=== PATIENT | male | born 1955 | race Caucasian/White ===

== ENCOUNTER 2017-07-01 06:25 | Inpatient (IN) | payer BC ==
[2017-07-01] VITALS (17 sets, daily range): BP systolic 89–110; BP diastolic 55–67; PULSE 48–62; RESP 14–19; Ht 170.2 cm; Wt 87.3 kg
[~2017-07-01] VITALS: Ht 170.2 cm; Wt 87.3 kg
[~2017-07-01 06:25] MED LIST: ASPI81TA3 PO; ATOR80TA75 PO; FINA5TAB PO; LISI-313 PO; METO-448 PO; PANT40TA4 PO; TICA90TA PO
[2017-07-01] MEDS ORDERED: LISI10TA2 PO (06:32)
[2017-07-01] MEDS ORDERED: METO-335 PO (06:32)
[2017-07-01] MEDS ORDERED: TAMS0.4C2 PO (06:32)
[2017-07-01] MEDS ORDERED: RANO500T2 PO (06:32)
[2017-07-01] MEDS ORDERED: LANS15CA5 PO (06:32)
[2017-07-01 07:15] LABS: BASOPHIL # 0.1 10^3/ul (0.0-0.1); BASOPHILS % 0.8 % (0.0-2.0); EOSINOPHILS # 0.1 10^3/ul (0.0-0.5); EOSINOPHILS % 1.7 % (0.0-7.0); HEMATOCRIT 39.7 % (42.0-52.0); HEMOGLOBIN 13.5 g/dl (14.0-18.0); LYMPHOCYTES # 1.9 10^3/ul (0.8-2.9); MEAN CORPUSCULAR HEMOGLOBIN 31.3 pg (29.0-33.0); MEAN CORPUSCULAR VOLUME 91.9 fl (82.0-101.0); MEAN PLATELET VOLUME 10.1 fl (7.4-10.4); MONOCYTE # 0.5 10^3/ul (0.3-0.9); MONOCYTES % 7.5 % (0.0-11.0); NEUTROPHIL # 4.5 10^3/ul (1.6-7.5); NEUTROPHILS % 62.7 % (39.0-77.0); PLATELET COUNT 200 10^3/UL (140-415); RED BLOOD COUNT 4.32 10^6/ul (4.70-6.10); RED CELL DISTRIBUTION WIDTH 12.8 % (11.5-14.5); WHITE BLOOD COUNT 7.1 10^3/ul (4.8-10.8)
[2017-07-01 07:45] LABS: INR 0.93; PROTIME 12.5 Sec (12.2-14.2)
[2017-07-01 07:52] LABS: CALCIUM 9.6 mg/dl (8.4-10.2); CREATININE 0.87 mg/dl (0.61-1.24); POTASSIUM 3.8 mmol/L (3.5-5.1)
[2017-07-01] MEDS ORDERED: MIDAZOLAM 1 MG/ML 2 ML INJ ONE (08:13)
[2017-07-01] MEDS ORDERED: FENTAnyl 50 MCG/ML VIAL ONE (08:13)
[2017-07-01] MEDS ORDERED: PROPOFOL 20 ML ONE (08:15)
[2017-07-01] MEDS ORDERED: LIDOCAINE 1%/EPI 30 ML INJ ONE ×2 (08:43→08:45)
[2017-07-01 08:45] LABS: PARTIAL THROMBOPLASTIN TIME 23.3 Sec (25.0-35.0)
[2017-07-01] MEDS ORDERED: PHENYLephrine (100 MCG/ML) 5ML SYG ONE (09:18)
[2017-07-01] MEDS ORDERED: PHENYLephrine 10 MG INJ ONE (09:18)
[2017-07-01] MEDS ORDERED: SOD CHLORIDE 0.9% 1,000 ML IV SCH (09:50)
--- NOTE | 2017-07-01 09:50 | SIPON ---
Date/Time of Note Date/Time of Note DATE: 07/01/17 TIME: 09:48 Operative Report Preoperative Diagnosis Isch MY, EF < 30%, CHF Class II - 6 mnths med rx, ICD based on MADIT 2 Postoperative Diagnosis Same Operation/Procedure Performed ICD VVI MRI 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
[2017-07-01] MEDS ORDERED: ACETAMINOPHEN 325 MG TAB PO PRN ×2 (10:00→11:30)
--- NOTE | 2017-07-01 10:05 | SP ---
DATE OF PROCEDURE: 07/01/2017 REFERRING PHYSICIAN: Dr. Christiansen. REASON FOR EVALUATION: Ischemic cardiomyopathy. PROCEDURE PERFORMED: Single chamber ICD implantation with Fluoroscopy with interpretation. INDICATION FOR PROCEDURE: Ischemic cardiomyopathy greater than 6 months' duration, good medical the rapy with EF less than 30% class II heart failure symptoms. POST PROCEDURE DIAGNOSIS: Single chamber ICD implantation with Fluoroscopy with interpretation. DEVICE INFORMATION: Implanted ICD is [facility] [employer] Fortify Assura TVR 1357-40Q, serial #[id number]. RV lead is [facility] [employer] Durata 7120Q 58 cm lead, serial #[id number]. Acute threshold R-wave wa s 6.8 millivolts, lead impedance 460 ohms, threshold 0.75 volts at 0.5 msec. High voltage impedance 37 ohms. Initial setting is VVI 45. Initial VT zone is 181, VF is 200. There is ATP x2 with initial shock at 30 and then max to follow. DESCRIPTION OF PROCEDURE: The informed consent was obtained. 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 Anesthesiologist supervised airway and sedation. The patient had left-side of the chest prepped and draped in usual sterile fashion, 1% lidocaine wa s used for local analgesia. Now using #10 scalpel, a 3 cm incision was made after lidocaine was inj ected and the pocket was created. Using cautery and blunt dissection, the pocket was created. Mc spaulding modified Salinger approach after upper extremity venogram, the left subclavian vein was cannulated and J-wire passed easily. From there using an 8-Tongan sheath as a base, the RV lead was placed in RV apex and actively fixed into RV apex. Some slack was left inside the lead and the sheath was pu lled away. The lead was sutured to the muscle layer with 0 Ethibond sutures. The lead was attached to the generator. The pocket was irrigated with antibiotic solution and entire system was placed i nside the pocket. The skin was closed in multiple layers of 2-0 Vicryl sutures. Steri-Strips were placed on top of the incision. The patient appears to have tolerated the procedure well. He is goi ng to have chest x-ray, continuous antibiotics and monitoring. I will see him in the office. Dictated By: ANNELIESE WATKINS MD ML/NTS Conf#: [id number] [facility]#: [id number]
--- NOTE | 2017-07-01 10:39 | RADRPT ---
PROCEDURE: XR Chest 1 View. CLINICAL INDICATION: Postop device implant. TECHNIQUE: AP view of the chest was obtained. COMPARISON: Report December 21, 2013 FINDINGS: The cardiomediastinal silhouette is within normal limits. Left-sided AICD has its lead over the hear t. The lungs are hypoinflated. Scattered atelectasis is noted in the bilateral lower lungs. No conso lidations are identified. No pneumothorax is seen. Osseous structures are intact. IMPRESSION: Left-sided AICD with its lead over the heart. No visualized pneumothorax. Hypoinflated lungs with scattered atelectasis in the bilateral lower lungs. RPTAT: AA .Salazar Amaya MD, Date Time Electronically viewed and signed by .Salazar Amaya MD, on 07/01/2017 10:38 .P/
[2017-07-01] MEDS: morphine 2 MG INJ IV PRN ×3 (11:05→20:30)
[2017-07-01] MEDS ORDERED: ALBUTEROL/IPRATROPIUM (NEB) 3 ML AMP HHN PRN (11:30)
[2017-07-01] MEDS ORDERED: ZOLPIDEM 5 MG TAB PO PRN (11:30)
[2017-07-01] MEDS ORDERED: DOCUSATE SODIUM 100 MG CAP PO PRN (11:30)
[2017-07-01] MEDS ORDERED: morphine 2 MG INJ IV PRN (11:30)
[2017-07-01] MEDS ORDERED: ONDANSETRON 4 MG INJ IV PRN (11:30)
[2017-07-01] MEDS ORDERED: NACL 0.9% 3 ML SYG IV SCH (11:30)
[2017-07-01] MEDS: TAMSULOSIN (SR) 0.4 MG CAP PO SCH (11:36)
[2017-07-01] MEDS: RANOLAZINE (SR) 500 MG TAB PO SCH ×2 (11:36→20:36)
[2017-07-01] MEDS: CEFAZOLIN 1 GM/50 ML (PMX) 50 ML IVPB SCH ×2 (13:57→22:06)
[2017-07-01] MEDS: HYDROCODONE/APAP (5/325) TAB PO PRN (14:24)
--- NOTE | 2017-07-01 14:58 | HP ---
Date/Time of Note Date/Time of Note DATE: 07/01/17 TIME: 14:52 Assessment/Plan VTE Prophylaxis VTE Prophylaxis Intervention: ambulation, SCD's Assessment/Plan Chief Complaint/Hosp Course 62-year-old male, with history of ischemic cardiomyopathy who was brought electively for AICD placement. 1. Ischemic cardiomyopathy, last known ejection fraction < 30% -Status post AICD placed. Continue Ancef postoperative course. Follow-up with cardiology recommendation. -Continue medical optimization 2. Coronary artery disease with history of PCI and stent placed to RCA/LAD. -Continue DAPT, statin, antihypertensives 3. Essential hypertension. -Continue BB/ACEI 4. Hypercholesteremia. -Continue statin. 5. BPH -Continue Flomax/Proscar Plan: Monitor patient in telemetry overnight. Follow-up with cardiology recommendations. Rest of the management depend on clinical course. Approximately 60 minutes was spent on this history and physical. Patient was seen in collaboration with . Problems: HPI/ROS Admit Date/Time Admit Date/Time Hx of Present Illness This is a 61-year-old male with a past medical history of previous NM, coronary artery disease with multiple PCI's, latest stent to RCA, proximal LAD done on , essential hypertension, dyslipidemia, ischemic cardiomyopathy, who was brought to hospital for elective AICD placement with Dr. Alonzo. Postprocedure, a decision has made to admit him for observation. Patient denied chest pain, palpitation, shortness of breath, nausea, vomiting, abdominal pain, focal deficit, or other constitutional symptoms. Left chest wall AICD placement area intact. CBC BMP within acceptable range. Vital signs with heart rate 54, respiratory rate 16, blood pressure 93/62 and oxygen saturation 96% on room air. ROS A 12 point review of system was assessed and is negative other than what is mentioned in HPI. PMH/Family/Social Past Medical History See HPI Past Surgical History See HPI Social History Former smoker. Patient denied any current use of alcohol, smoking or illicit drug use. Smoking Status: Former smoker Exam/Review of Systems Vital Signs Vitals Vital Signs Date Time Temp Pulse Resp B/P Pulse Ox O2 Delivery O2 Flow Rate FiO2 07/01/17 14:21 54 16 96 07/01/17 12:21 93/62 Room Air 07/01/17 10:01 97.0 Exam Exam General: Well developed,adequately built, not in any acute distress . HEENT: Normocephalic, Atraumatic, No laceration or hematoma; Eyes: PEERL, Conjunctiva clear, Anicteric sclera Neck: Supple without any lymphadenopathy, nontender, no JVD, no carotid bruits, trachea midline, no thyromegaly Cardiac: Left chest wall AICD. S1, S2 auscultated, regular rhythm and rate, no mumurs or gallop Pulmonary: Normal respiratory effort. Chest clear to auscultation bilaterally, no adventitious breath sounds GI: Abdomen normal to inspection. Soft, non tender, non- distended, no masses, no rebound tenderness or guarding. Bowel sounds active on all four quadrants Genitourinary: Deferred Extremities: No cyanosis, clubbing, or edema. Pulses [2+] bilaterally. Full ROM on all four extremities. No focal weakness appreciated. Neurologic: Alert to person, place, time, and situation. Affect appropriate, intact sensation. Skin: Clean,dry, and intact. No ecchymosis, no rashes, or lesions Labs Result Diagram: 07/01/17 0700 07/01/17 0700 Medications Medications Current Medications Acetaminophen (Tylenol Tab) 650 mg Q4H PRN PO NON-CARDIAC PAIN LEVEL (1-3) Last administered on 07/01/17 10:23; Admin Dose 650 MG; Start 07/01/17 at 10: 00 Morphine Sulfate 2 mg 2 mg Q2H PRN IV FOR NON CARDIAC PAIN (4-10) Last administered on 07/01/17 11:05; Admin Dose 2 MG; Start 07/01/17 at 10:00 Sodium Chloride 1,000 ml @ 75 mls/hr [id number] IV Last administered on 10:24; Admin Dose 75 MLS/HR; Start 07/01/17 at 09:50; Stop 07/01/17 at 14 :49 Cefazolin Sodium (Ancef 1 Gm/50 ml (Pmx)) 50 ml @ 100 mls/hr Q8 IVPB Last administered on 07/01/17 13:57; Admin Dose 100 MLS/HR; Start 07/01/17 at 14: 00 Miscellaneous Information (* Miscellaneous Pharmacy Order) DC all Lovenox, Hepari... ONCE XX ; Start 07/01/17 at 10:00 Aspirin (Aspirin) 81 mg DAILY PO ; Start 07/02/17 at 09:00 Atorvastatin Calcium (Lipitor) 80 mg HS PO ; Start 07/01/17 at 21:00 Finasteride (Proscar) 5 mg DAILY PO ; Start 07/02/17 at 09:00 Lisinopril (Zestril) 10 mg DAILY PO ; Start 07/02/17 at 09:00 Metoprolol Succinate (Toprol Xl) 25 mg DAILY PO ; Start 07/02/17 at 09:00 Ranolazine (Ranexa) 500 mg Q12 PO Last administered on 07/01/17 11:36; Admin Dose 500 MG; Start 07/01/17 at 11:00 Tamsulosin HCl (Flomax) 0.4 mg DAILY PO Last administered on 07/01/17 11:36; Admin Dose 0.4 MG; Start 07/01/17 at 11:00 Ticagrelor (Brilinta) 90 mg BID PO ; Start 07/01/17 at 21:00 Ondansetron HCl (Zofran Inj) 4 mg Q6H PRN IV NAUSEA AND/OR VOMITING; Start at 11:30 Acetaminophen (Tylenol Tab) 650 mg Q6H PRN PO PAIN LEVEL 1-3 OR FEVER; Start 07/01/17 at 11:30 Acetaminophen/ Hydrocodone Bitart ([place] (5/325)) 1 tab Q6H PRN PO MODERATE PAIN LEVEL 4-6 Last administered on 07/01/17 14:24; Admin Dose 1 TAB; Start 07/01/17 at 11:30 Morphine Sulfate (morphine) 1 mg Q4H PRN IV SEVERE PAIN LEVEL 7-10 Last administered on 07/01/17 13:50; Admin Dose 1 MG; Start 07/01/17 at 11:30 Docusate Sodium (Colace) 100 mg Q12H PRN PO CONSTIPATION; Start 07/01/17 at 11 :30 Zolpidem Tartrate (Ambien) 5 mg QHS PRN PO SLEEP; Start 07/01/17 at 11:30 Famotidine (Pepcid Iv) 20 mg Q12 IV ; Start 07/01/17 at 21:00 PAUL DURAN NP Jul 01, 2017 14:58
[2017-07-01] MEDS: TICAGRELOR 90 MG TABLET PO SCH (20:36)
[2017-07-01] MEDS: FAMOTIDINE 20 MG INJ IV SCH (20:36)
[2017-07-01] MEDS ORDERED: ATORVASTATIN 80 MG TAB PO SCH (21:00)
--- NOTE | 2017-07-01 22:43 | RADRPT ---
Vent Rate: 57 bpm RR Interval: 0 msec [place] Interval: 224 msec QRS Duration: 124 msec QT Interval: 432 msec QTC Interval: 420 msec P-R-T [place]: 38 - -48 - -35 degrees Sinus bradycardia with 1st degree AV block Left anterior fascicular block Nonspecific ST and T wave abnormality Abnormal ECG Electronically Signed By: Omar Dahl [id number]
[2017-07-02] VITALS (8 sets, daily range): BP systolic 94–113; BP diastolic 53–68; PULSE 58–68; RESP 18–20
[2017-07-02] MEDS: morphine 2 MG INJ IV PRN (03:55)
[2017-07-02] MEDS: HYDROCODONE/APAP (5/325) TAB PO PRN (05:17)
[2017-07-02] MEDS: CEFAZOLIN 1 GM/50 ML (PMX) 50 ML IVPB SCH (05:17)
[2017-07-02 08:31] LABS: BASOPHIL # 0.1 10^3/ul (0.0-0.1); BASOPHILS % 0.6 % (0.0-2.0); EOSINOPHILS # 0.1 10^3/ul (0.0-0.5); EOSINOPHILS % 1.1 % (0.0-7.0); HEMATOCRIT 38.7 % (42.0-52.0); HEMOGLOBIN 12.7 g/dl (14.0-18.0); LYMPHOCYTES # 1.8 10^3/ul (0.8-2.9); LYMPHOCYTES % 20.5 % (15.0-51.0); MEAN CORPUSCULAR HEMOGLOBIN 30.8 pg (29.0-33.0); MEAN CORPUSCULAR HGB CONC 32.8 g/dl (32.0-37.0); MEAN CORPUSCULAR VOLUME 93.7 fl (82.0-101.0); MEAN PLATELET VOLUME 10.7 fl (7.4-10.4); MONOCYTE # 0.4 10^3/ul (0.3-0.9); NEUTROPHIL # 6.4 10^3/ul (1.6-7.5); NEUTROPHILS % 72.6 % (39.0-77.0); PLATELET COUNT 167 10^3/UL (140-415); RED BLOOD COUNT 4.13 10^6/ul (4.70-6.10); RED CELL DISTRIBUTION WIDTH 13.2 % (11.5-14.5); WHITE BLOOD COUNT 8.8 10^3/ul (4.8-10.8)
[2017-07-02] MEDS ORDERED: LISINOPRIL 10 MG TAB PO SCH (09:00)
[2017-07-02] MEDS ORDERED: FINASTERIDE 5 MG TAB PO SCH (09:00)
[2017-07-02] MEDS: TAMSULOSIN (SR) 0.4 MG CAP PO SCH (09:00)
[2017-07-02] MEDS ORDERED: METOPROLOL (XL) 25 MG TAB PO SCH (09:00)
[2017-07-02] MEDS ORDERED: ASPIRIN 81 MG TAB PO SCH (09:00)
[2017-07-02 09:05] LABS: CALCIUM 8.9 mg/dl (8.4-10.2); CREATININE 0.84 mg/dl (0.61-1.24); POTASSIUM 3.9 mmol/L (3.5-5.1)
[2017-07-02] MEDS: TICAGRELOR 90 MG TABLET PO SCH (09:05)
[2017-07-02] MEDS: RANOLAZINE (SR) 500 MG TAB PO SCH (09:07)
[2017-07-02] MEDS: FAMOTIDINE 20 MG INJ IV SCH (09:08)
--- NOTE | 2017-07-02 10:04 | PN ---
Date/Time of Note Date/Time of Note DATE: 07/02/17 TIME: 10:02 Assessment/Plan VTE Prophylaxis VTE Prophylaxis Intervention: ambulation, SCD's Lines/Catheters Urinary Cath still in place: No Assessment/Plan Chief Complaint/Hosp Course 62-year-old male, with history of ischemic cardiomyopathy who was brought electively for AICD placement. 1. Ischemic cardiomyopathy, last known ejection fraction < 30% -Status post AICD placed. Continue Ancef postoperative course. Follow-up with cardiology recommendation. -Continue medical optimization 2. Coronary artery disease with history of PCI and stent placed to RCA/LAD. -Continue DAPT, statin, antihypertensives 3. Essential hypertension. -Continue BB/ACEI 4. Hypercholesteremia. -Continue statin. 5. BPH -Continue Flomax/Proscar Plan: Follow-up with cardiology recommendations on DC plan Patient was seen in collaboration with . Problems: Subjective 24 Hr Interval Summary Free Text/Dictation Doing well. NAD.In sinus rhythm. Exam/Review of Systems Vital Signs Vitals Vital Signs Date Time Temp Pulse Resp B/P Pulse Ox O2 Delivery O2 Flow Rate FiO2 07/02/17 08:33 68 07/02/17 07:39 98.1 20 105/58 96 07/01/17 12:21 Room Air Intake and Output 07/01/17 07/01/17 07/02/17 15:00 23:00 07:00 Intake Total 635 ml 420 ml Output Total 475 ml Balance 635 ml -475 ml 420 ml Exam General: Well developed,adequately built, not in any acute distress . HEENT: Normocephalic, Atraumatic, No laceration or hematoma; Eyes: PEERL, Conjunctiva clear, Anicteric sclera Neck: Supple without any lymphadenopathy, nontender, no JVD, no carotid bruits, trachea midline, no thyromegaly Cardiac: Left chest wall AICD. S1, S2 auscultated, regular rhythm and rate, no mumurs or gallop Pulmonary: Normal respiratory effort. Chest clear to auscultation bilaterally, no adventitious breath sounds GI: Abdomen normal to inspection. Soft, non tender, non- distended, no masses, no rebound tenderness or guarding. Bowel sounds active on all four quadrants Genitourinary: Deferred Extremities: No cyanosis, clubbing, or edema. Pulses [2+] bilaterally. Full ROM on all four extremities. No focal weakness appreciated. Neurologic: Alert to person, place, time, and situation. Affect appropriate, intact sensation. Skin: Clean,dry, and intact. No ecchymosis, no rashes, or lesions Results Result Diagram: 07/02/17 0807/02/17 08 Results 24 hrs Laboratory Tests Test 07/02/17 08:02 White Blood Count 8.8 # Red Blood Count 4.13 L Hemoglobin 12.7 L Hematocrit 38.7 L Mean Corpuscular Volume 93.7 Mean Corpuscular Hemoglobin 30.8 Mean Corpuscular Hemoglobin Concent 32.8 Red Cell Distribution Width 13.2 Platelet Count 167 Mean Platelet Volume 10.7 H Neutrophils % 72.6 Lymphocytes % 20.5 Monocytes % 5.0 Eosinophils % 1.1 Basophils % 0.6 Nucleated Red Blood Cells % 0.0 Neutrophils # 6.4 Lymphocytes # 1.8 Monocytes # 0.4 Eosinophils # 0.1 Basophils # 0.1 Nucleated Red Blood Cells # 0.0 Sodium Level 135 Potassium Level 3.9 Chloride Level 104 Carbon Dioxide Level 24 Anion Gap 11 Blood Urea Nitrogen 13 Creatinine 0.84 Glucose Level 177 Calcium Level 8.9 Magnesium Level 1.7 Medications Medications Current Medications Acetaminophen (Tylenol Tab) 650 mg Q4H PRN PO NON-CARDIAC PAIN LEVEL (1-3) Last administered on 07/01/17 10:23; Admin Dose 650 MG; Start 07/01/17 at 10: 00 Morphine Sulfate 2 mg 2 mg Q2H PRN IV FOR NON CARDIAC PAIN (4-10) Last administered on 07/02/17 03:55; Admin Dose 2 MG; Start 07/01/17 at 10:00 Cefazolin Sodium (Ancef 1 Gm/50 ml (Pmx)) 50 ml @ 100 mls/hr Q8 IVPB Last administered on 07/02/17 05:17; Admin Dose 100 MLS/HR; Start 07/01/17 at 14: 00 Miscellaneous Information (* Miscellaneous Pharmacy Order) DC all Lovenox, Hepari... ONCE XX ; Start 07/01/17 at 10:00 Aspirin (Aspirin) 81 mg DAILY PO Last administered on 07/02/17 09:07; Admin Dose 81 MG; Start 07/02/17 at 09:00 Atorvastatin Calcium (Lipitor) 80 mg HS PO ; Start 07/01/17 at 21:00 Finasteride (Proscar) 5 mg DAILY PO Last administered on 07/02/17 09:08; Admin Dose 5 MG; Start 07/02/17 at 09:00 Lisinopril (Zestril) 10 mg DAILY PO ; Start 07/02/17 at 09:00 Metoprolol Succinate (Toprol Xl) 25 mg DAILY PO ; Start 07/02/17 at 09:00 Ranolazine (Ranexa) 500 mg Q12 PO Last administered on 07/02/17 09:07; Admin Dose 500 MG; Start 07/01/17 at 11:00 Tamsulosin HCl (Flomax) 0.4 mg DAILY PO Last administered on 07/01/17 11:36; Admin Dose 0.4 MG; Start 07/01/17 at 11:00 Ticagrelor (Brilinta) 90 mg BID PO Last administered on 07/02/17 09:05; Admin Dose 90 MG; Start 07/01/17 at 21:00 Ondansetron HCl (Zofran Inj) 4 mg Q6H PRN IV NAUSEA AND/OR VOMITING; Start at 11:30 Acetaminophen (Tylenol Tab) 650 mg Q6H PRN PO PAIN LEVEL 1-3 OR FEVER; Start 07/01/17 at 11:30 Acetaminophen/ Hydrocodone Bitart ([place] (5/325)) 1 tab Q6H PRN PO MODERATE PAIN LEVEL 4-6 Last administered on 07/02/17 05:17; Admin Dose 1 TAB; Start 07/01/17 at 11:30 Morphine Sulfate (morphine) 1 mg Q4H PRN IV SEVERE PAIN LEVEL 7-10 Last administered on 07/01/17 13:50; Admin Dose 1 MG; Start 07/01/17 at 11:30 Docusate Sodium (Colace) 100 mg Q12H PRN PO CONSTIPATION; Start 07/01/17 at 11 :30 Zolpidem Tartrate (Ambien) 5 mg QHS PRN PO SLEEP; Start 07/01/17 at 11:30 Famotidine (Pepcid Iv) 20 mg Q12 IV Last administered on 07/02/17 09:08; Admin Dose 20 MG; Start 07/01/17 at 21:00 PAUL DURAN NP Jul 02, 2017 10:04
--- NOTE | 2017-07-02 10:05 | PDOCDIS ---
Discharge Instructions CONDITION Patient Condition: Stable HOME CARE INSTRUCTIONS: Special Diet: Cardiac FOLLOW UP/APPOINTMENTS Follow-up Plan 1.Follow up with primary care physician in 1 week If you don't have one please let someone know, we can give you resources that may help you pick one. You may also call your insurance company to assign one to you. Review your medication list with your nurse before leaving and if you need new prescriptions please let your nurse know. I may have made changes to your home medications or given you new prescriptions, please let your primary doctor know as well. Stay compliant with your medications and report any side effects to your PCP or pharmacist. Return to the ER if you have any concerns and cannot reach your doctors or call your insurance company, they usually have a nurse that can help you. 2. Call 911 or go to the nearest emergency room if experiencing loss of consciousness, dizziness, chest pain, shortness of breath, vomiting/abdominal pain, speech difficulties, motor weakness or any unusual symptoms. 3.Follow-up with / in 1 week [id number] [place] [address] Office Please note that you are being discharged from the hospital after AICD placed. Please follow this instructions. What is an implantable cardioverter-defibrillator? An implantable cardioverter -defibrillator, also called an "ICD," is a device that goes under a person's skin near his or her heart An ICD can sense and treat certain abnormal heartbeats. A person's heart needs to beat normally in order to pump blood to the brain and rest of the body. But sometimes, a person's heartbeat can suddenly become abnormal. The heartbeat could be too slow, too fast, or out of rhythm. Some abnormal heartbeats are dangerous, because they can prevent the heart from pumping blood to the brain and rest of the body. A "cardiac arrest" is when an abnormal heartbeat prevents the heart from pumping blood normally. A cardiac arrest can happen without warning, and can cause if it is not treated right away. An ICD can treat the abnormal heartbeats that can lead to a cardiac arrest. People who have an ICD have a greater chance of surviving a cardiac arrest. Who might need an ICD? You might need an ICD if you: Have a condition that can cause abnormal heartbeats Have had one or more episodes of abnormal heartbeats How does an ICD work? An ICD works to: Sense abnormal heartbeats Give the heart one or more electrical shocks if the heartbeat becomes abnormal. This can get the heart to beat normally again. Record abnormal heartbeats so that a doctor can see how a person's heart has been beating What does an ICD look like? An ICD has 2 parts: Battery This sits under the skin. Depending on the type of ICD, it goes either in the upper chest or on the side, near the armpit. When the ICD senses an abnormal heartbeat, the battery creates an electrical shock or shocks that travel through wires to the heart. Wires, also called "leads" In many ICDs, these go from the battery through a vein (blood vessel) and into the heart. There is also a newer type of ICD, which has wires that go near the heart but not actually inside it. Can there be side effects to having an ICD? Yes. Your doctor will talk with you about the different side effects that can occur. Side effects can occur when a doctor puts in an ICD. People who have had an ICD for a long time can also have side effects. But most people do not have any side effects from having an ICD. What should I do after my ICD treats an abnormal heartbeat? If your ICD gives you a shock (you will probably feel it), let your doctor know. He or she will look at the record of your heartbeats and might decide to make changes to the way your ICD works. Do people with an ICD need other treatment? Sometimes, people with an ICD will need other treatment. This can include medicines or procedures. What if I want to get ? If you want to get , talk with your doctor or nurse. Many women with an ICD are able to have a baby. What will my life be like? Most people with an ICD have a normal life. But you will need to: Check your ICD on a regular basis to make sure that it works Many people can check their ICD from their home, using either their phone or computer. Talk to your doctor about driving Many states do not allow people to drive for some amount of time after they have an ICD put in or after they get a shock from their ICD. Your doctor will tell you how long you need to wait before you drive again. Avoid certain electric or magnetic sources People who have an ICD need to avoid certain electric or magnetic sources or equipment. Your doctor will tell you which ones are safe for you to be near, and which ones you should avoid. For example, some people with an ICD should not walk through a metal detector at the airport. (People who cannot walk through a metal detector can have a security search by hand instead.) Let all of your doctors and nurses know that you have an ICD Some procedures and tests are safe for people with an ICD, but others are not. For example, people with an ICD should not have a type of imaging test called an MRI scan. Most doctors recommend that people wear a medical bracelet letting others know that they have an ICD. Some people who have an ICD feel worried or sad. If you feel worried or sad, let your doctor or nurse know so that he or she can help. PAUL DURAN NP Jul 02, 2017 10:05
[2017-07-02] MEDS ORDERED: HYDR-2086 PO (10:24)
--- NOTE | 2017-07-02 10:37 | DS ---
Date/Time of Note Date/Time of Note DATE: 07/02/17 TIME: 10:34 Discharge Summary Admission/Discharge Info Admit Date/Time Jul 02, 2017 at 00:04 Discharge Date/Time Discharge Diagnosis 1. Ischemic cardiomyopathy, last known ejection fraction < 30%. Status post AICD placed. 2. Coronary artery disease with history of PCI and stent placed to RCA/LAD. 3. Essential hypertension. 4. Hypercholesteremia. 5. BPH Patient Condition: Stable Consults , Cardiology Procedures 07/02/2017. Operation/Procedure Performed ICD VVI MRI [facility] 45 bpm Hx of Present Illness This is a 61-year-old male with a past medical history of previous AL, coronary artery disease with multiple PCI's, latest stent to RCA, proximal LAD done on , essential hypertension, dyslipidemia, ischemic cardiomyopathy, who was brought to hospital for elective AICD placement with Dr. Alonzo. Postprocedure, a decision has made to admit him for observation. Patient denied chest pain, palpitation, shortness of breath, nausea, vomiting, abdominal pain, focal deficit, or other constitutional symptoms. Left chest wall AICD placement area intact. CBC BMP within acceptable range. Vital signs with heart rate 54, respiratory rate 16, blood pressure 93/62 and oxygen saturation 96% on room air. Hospital Course Patient tolerated procedure well. Postoperatively, patient was kept in telemetry for observation. He did not have any arrhythmias. Patient was able to tolerate diet and activities. He did have any chest pain. Patient also had very minimal pain on incision site. There was no fevers. Blood pressure and heart rate remained stable. Patient was continued on his home medication for underlying comorbid conditions. Patient received antibiotic prophylaxis preop, intraop and post procedure.There was no evidence of infection. At this time, as per manager cleaning, patient can be discharged with outpatient close monitoring. Disposition: Patient will be discharged home. He was given prescription for pain medications as needed. Patient was also given instructions on AICD care as outpatient. Patient to follow-up with his manager cleaning in 1 week. Patient verbalized discharge instructions. Approximately 60 minutes was spent on coordinating the discharge on this patient. Patient was seen in collaboration with . Home Meds Active Scripts Hydrocodone Bit-Acetaminophen* (Vicodin*) 5-300 Tab, 1 TAB PO Q6H Y for PAIN, # 15 TAB Prov:PAUL DURAN V. OPHTHALMIC PATHOLOGIST 07/02/17 Finasteride* (Proscar*) 5 Mg Tab, 5 MG PO DAILY, #90 TAB Prov:PAVEL ZARCO MD 01/05/16 Ticagrelor* (Brilinta*) 90 Mg Tablet, 90 MG PO DAILY, #120 Prov:PAVEL ZARCO MD 01/05/16 Atorvastatin* (Atorvastatin*) 80 Mg Tablet, 80 MG PO HS, #90 Prov:PAVEL ZARCO MD 01/05/16 Aspirin (Aspirin) 81 Mg Chew, 81 MG PO DAILY, #100 Prov:PAVEL ZARCO MD 01/05/16 Reported Medications Metoprolol Succinate* (Toprol XL*) 25 Mg Tab.sr.24h, 25 MG PO DAILY, #30 TAB 07/01/17 Lisinopril* (Lisinopril*) 10 Mg Tablet, 10 MG PO DAILY, #30 TAB 07/01/17 Ranolazine* (Ranexa*) 500 Mg Tab.sr.12h, 500 MG PO Q12, TAB 07/01/17 Lansoprazole* (Lansoprazole*) 15 Mg Capsule.dr, 15 MG PO DAILY, CAP 07/01/17 Tamsulosin Hcl* (Tamsulosin Hcl*) 0.4 Mg Cap.er.24h, 0.4 MG PO DAILY, CAP 07/01/17 Discontinued Scripts Pantoprazole* (Pantoprazole*) 40 Mg Tabec, 40 MG PO DAILY@06, #90 Prov:PAVEL ZARCO MD 01/05/16 Lisinopril* (Lisinopril*) 5 Mg Tablet, 5 MG PO DAILY, #90 Prov:PAVEL ZARCO MD 01/05/16 Metoprolol Tartrate* (Lopressor*) 25 Mg Tab, 25 MG PO DAILY, #90 TAB Prov:PAVEL ZARCO MD 01/05/16 Follow-up Plan 1.Follow up with primary care physician in 1 week If you don't have one please let someone know, we can give you resources that may help you pick one. You may also call your insurance company to assign one to you. Review your medication list with your nurse before leaving and if you need new prescriptions please let your nurse know. I may have made changes to your home medications or given you new prescriptions, please let your primary doctor know as well. Stay compliant with your medications and report any side effects to your PCP or pharmacist. Return to the ER if you have any concerns and cannot reach your doctors or call your insurance company, they usually have a nurse that can help you. 2. Call 911 or go to the nearest emergency room if experiencing loss of consciousness, dizziness, chest pain, shortness of breath, vomiting/abdominal pain, speech difficulties, motor weakness or any unusual symptoms. 3.Follow-up with / in 1 week [id number] [place] [address] Office Please note that you are being discharged from the hospital after AICD placed. Please follow this instructions. What is an implantable cardioverter-defibrillator? An implantable cardioverter -defibrillator, also called an "ICD," is a device that goes under a person's skin near his or her heart An ICD can sense and treat certain abnormal heartbeats. A person's heart needs to beat normally in order to pump blood to the brain and rest of the body. But sometimes, a person's heartbeat can suddenly become abnormal. The heartbeat could be too slow, too fast, or out of rhythm. Some abnormal heartbeats are dangerous, because they can prevent the heart from pumping blood to the brain and rest of the body. A "cardiac arrest" is when an abnormal heartbeat prevents the heart from pumping blood normally. A cardiac arrest can happen without warning, and can cause if it is not treated right away. An ICD can treat the abnormal heartbeats that can lead to a cardiac arrest. People who have an ICD have a greater chance of surviving a cardiac arrest. Who might need an ICD? You might need an ICD if you: Have a condition that can cause abnormal heartbeats Have had one or more episodes of abnormal heartbeats How does an ICD work? An ICD works to: Sense abnormal heartbeats Give the heart one or more electrical shocks if the heartbeat becomes abnormal. This can get the heart to beat normally again. Record abnormal heartbeats so that a doctor can see how a person's heart has been beating What does an ICD look like? An ICD has 2 parts: Battery This sits under the skin. Depending on the type of ICD, it goes either in the upper chest or on the side, near the armpit. When the ICD senses an abnormal heartbeat, the battery creates an electrical shock or shocks that travel through wires to the heart. Wires, also called "leads" In many ICDs, these go from the battery through a vein (blood vessel) and into the heart. There is also a newer type of ICD, which has wires that go near the heart but not actually inside it. Can there be side effects to having an ICD? Yes. Your doctor will talk with you about the different side effects that can occur. Side effects can occur when a doctor puts in an ICD. People who have had an ICD for a long time can also have side effects. But most people do not have any side effects from having an ICD. What should I do after my ICD treats an abnormal heartbeat? If your ICD gives you a shock (you will probably feel it), let your doctor know. He or she will look at the record of your heartbeats and might decide to make changes to the way your ICD works. Do people with an ICD need other treatment? Sometimes, people with an ICD will need other treatment. This can include medicines or procedures. What if I want to get ? If you want to get , talk with your doctor or nurse. Many women with an ICD are able to have a baby. What will my life be like? Most people with an ICD have a normal life. But you will need to: Check your ICD on a regular basis to make sure that it works Many people can check their ICD from their home, using either their phone or computer. Talk to your doctor about driving Many states do not allow people to drive for some amount of time after they have an ICD put in or after they get a shock from their ICD. Your doctor will tell you how long you need to wait before you drive again. Avoid certain electric or magnetic sources People who have an ICD need to avoid certain electric or magnetic sources or equipment. Your doctor will tell you which ones are safe for you to be near, and which ones you should avoid. For example, some people with an ICD should not walk through a metal detector at the airport. (People who cannot walk through a metal detector can have a security search by hand instead.) Let all of your doctors and nurses know that you have an ICD Some procedures and tests are safe for people with an ICD, but others are not. For example, people with an ICD should not have a type of imaging test called an MRI scan. Most doctors recommend that people wear a medical bracelet letting others know that they have an ICD. Some people who have an ICD feel worried or sad. If you feel worried or sad, let your doctor or nurse know so that he or she can help. Primary Care Provider Not On Staff Doctor Pending Labs Laboratory Tests Test 07/02/17 08:02 White Blood Count 8.810^3/ul (4.8-10.8) Red Blood Count 4.1310^6/ul (4.70-6.10) Hemoglobin 12.7g/dl (14.0-18.0) Hematocrit 38.7% (42.0-52.0) Mean Corpuscular Volume 93.7fl (82.0-101.0) Mean Corpuscular Hemoglobin 30.8pg (29.0-33.0) Mean Corpuscular Hemoglobin Concent 32.8g/dl (32.0-37.0) Red Cell Distribution Width 13.2% (11.5-14.5) Platelet Count 51217^3/UL (140-415) Mean Platelet Volume 10.7fl (7.4-10.4) Neutrophils % 72.6% (39.0-77.0) Lymphocytes % 20.5% (15.0-51.0) Monocytes % 5.0% (0.0-11.0) Eosinophils % 1.1% (0.0-7.0) Basophils % 0.6% (0.0-2.0) Nucleated Red Blood Cells % 0.0/100WBC (0.0-0.0) Neutrophils # 6.410^3/ul (1.6-7.5) Lymphocytes # 1.810^3/ul (0.8-2.9) Monocytes # 0.410^3/ul (0.3-0.9) Eosinophils # 0.110^3/ul (0.0-0.5) Basophils # 0.110^3/ul (0.0-0.1) Nucleated Red Blood Cells # 0.010^3/ul (0.0-0.0) Sodium Level 135mmol/L (135-144) Potassium Level 3.9mmol/L (3.5-5.1) Chloride Level 104mmol/L (97-110) Carbon Dioxide Level 24mmol/L (21-31) Anion Gap 11 (8-16) Blood Urea Nitrogen 13mg/dl (7-20) Creatinine 0.84mg/dl (0.61-1.24) Glucose Level 177mg/dl (70-220) Calcium Level 8.9mg/dl (8.4-10.2) Magnesium Level 1.7mg/dl (1.7-2.5) PAUL DURAN NP Jul 02, 2017 10:37
--- NOTE | 2017-07-02 13:28 | CONS ---
Date/Time of Note Date/Time of Note DATE: 07/02/17 TIME: 13:24 Assessment/Plan Assessment/Plan Chief Complaint/Hosp Course IMP: 1.POD#1 s/p ICD implant 2.Cardiomyopathy EF<30 3.PTCA/stent to LAD/RCA 4.HTN REcc: -Tele -serial ecg's -Contiue asa/brilinta -Continue ACEI/BB -abx prophylaxis -Pain control -D/C planning Problems: Consultation Date/Type/Reason Admit Date/Time Jul 02, 2017 at 00:04 Initial Consult Date 07/02/2017 Type of Consultation: cardiology Reason for Consultation cardiomyopathy Referring Provider: ANNELIESE WATKINS MD Exam/Review of Systems Vital Signs Vitals Vital Signs Date Time Temp Pulse Resp B/P Pulse Ox O2 Delivery O2 Flow Rate FiO2 07/02/17 12:17 58 07/02/17 12:08 98.2 20 113/67 100 07/01/17 12:21 Room Air Intake and Output 07/01/17 07/01/17 07/02/17 15:00 23:00 07:00 Intake Total 635 ml 420 ml Output Total 475 ml Balance 635 ml -475 ml 420 ml Exam Review of Systems: CONSTITUTIONAL: No fevers, chills. PULMONARY: No sob CARDIOVASCULAR: No chest pain/palpitations GASTROINTESTINAL: No nausea/vomiting. GENITOURINARY: No hematuria/dysuria. MUSCULOSKELETAL: No myagias/arthalgias. PSYCHIATRIC: The patient denies depression. NEUROLOGIC: No weakness Constitutional: alert Psych: no complaints Head: normocephalic ENMT: mucosa pink and moist Neck: jvd (9 cm water), supple Respiratory: diminished breath sounds Cardiovascular: other (L upper chest covered by dressing with dried blood. NO sig sweeling) Gastrointestinal: non-tender, soft Musculoskeletal: muscle tone (normal) Extremities: edema (none) Neurological: other (No focal deficits) Results Result Diagram: 07/02/17 0807/02/17 08 Results 24 hrs Laboratory Tests Test 07/02/17 08:02 White Blood Count 8.8 # Red Blood Count 4.13 L Hemoglobin 12.7 L Hematocrit 38.7 L Mean Corpuscular Volume 93.7 Mean Corpuscular Hemoglobin 30.8 Mean Corpuscular Hemoglobin Concent 32.8 Red Cell Distribution Width 13.2 Platelet Count 167 Mean Platelet Volume 10.7 H Neutrophils % 72.6 Lymphocytes % 20.5 Monocytes % 5.0 Eosinophils % 1.1 Basophils % 0.6 Nucleated Red Blood Cells % 0.0 Neutrophils # 6.4 Lymphocytes # 1.8 Monocytes # 0.4 Eosinophils # 0.1 Basophils # 0.1 Nucleated Red Blood Cells # 0.0 Sodium Level 135 Potassium Level 3.9 Chloride Level 104 Carbon Dioxide Level 24 Anion Gap 11 Blood Urea Nitrogen 13 Creatinine 0.84 Glucose Level 177 Calcium Level 8.9 Magnesium Level 1.7 Medications Medications Current Medications Acetaminophen (Tylenol Tab) 650 mg Q4H PRN PO NON-CARDIAC PAIN LEVEL (1-3) Last administered on 07/01/17 10:23; Admin Dose 650 MG; Start 07/01/17 at 10: 00 Morphine Sulfate 2 mg 2 mg Q2H PRN IV FOR NON CARDIAC PAIN (4-10) Last administered on 07/02/17 03:55; Admin Dose 2 MG; Start 07/01/17 at 10:00 Cefazolin Sodium (Ancef 1 Gm/50 ml (Pmx)) 50 ml @ 100 mls/hr Q8 IVPB Last administered on 07/02/17 05:17; Admin Dose 100 MLS/HR; Start 07/01/17 at 14: 00 Miscellaneous Information (* Miscellaneous Pharmacy Order) DC all Lovenox, Hepari... ONCE XX ; Start 07/01/17 at 10:00 Aspirin (Aspirin) 81 mg DAILY PO Last administered on 07/02/17 09:07; Admin Dose 81 MG; Start 07/02/17 at 09:00 Atorvastatin Calcium (Lipitor) 80 mg HS PO ; Start 07/01/17 at 21:00 Finasteride (Proscar) 5 mg DAILY PO Last administered on 07/02/17 09:08; Admin Dose 5 MG; Start 07/02/17 at 09:00 Lisinopril (Zestril) 10 mg DAILY PO ; Start 07/02/17 at 09:00 Metoprolol Succinate (Toprol Xl) 25 mg DAILY PO ; Start 07/02/17 at 09:00 Ranolazine (Ranexa) 500 mg Q12 PO Last administered on 07/02/17 09:07; Admin Dose 500 MG; Start 07/01/17 at 11:00 Tamsulosin HCl (Flomax) 0.4 mg DAILY PO Last administered on 07/01/17 11:36; Admin Dose 0.4 MG; Start 07/01/17 at 11:00 Ticagrelor (Brilinta) 90 mg BID PO Last administered on 07/02/17 09:05; Admin Dose 90 MG; Start 07/01/17 at 21:00 Ondansetron HCl (Zofran Inj) 4 mg Q6H PRN IV NAUSEA AND/OR VOMITING; Start at 11:30 Acetaminophen (Tylenol Tab) 650 mg Q6H PRN PO PAIN LEVEL 1-3 OR FEVER; Start 07/01/17 at 11:30 Acetaminophen/ Hydrocodone Bitart (Ronco (5/325)) 1 tab Q6H PRN PO MODERATE PAIN LEVEL 4-6 Last administered on 07/02/17 05:17; Admin Dose 1 TAB; Start 07/01/17 at 11:30 Morphine Sulfate (morphine) 1 mg Q4H PRN IV SEVERE PAIN LEVEL 7-10 Last administered on 07/01/17 13:50; Admin Dose 1 MG; Start 07/01/17 at 11:30 Docusate Sodium (Colace) 100 mg Q12H PRN PO CONSTIPATION; Start 07/01/17 at 11 :30 Zolpidem Tartrate (Ambien) 5 mg QHS PRN PO SLEEP; Start 07/01/17 at 11:30 Famotidine (Pepcid Iv) 20 mg Q12 IV Last administered on 07/02/17 09:08; Admin Dose 20 MG; Start 07/01/17 at 21:00 NIMCO PERRY Jul 02, 2017 13:28
[2017-07-02] MEDS ORDERED: CEPH-443 PO (16:15)
== END 2017-07-02 13:26 | disposition home or self-care (01) | DRG 227 ==
LOC: SDS 06:25 → CCL 06:25 → SDS 17:05 → TEL 17:06 → UNDOADMIN 17:06 → TEL 23:50 → OBSVTOIN 07-02 00:04
PROVIDERS: ADMIT Internal Medicine; ATTEND Hospitalist
PROC: 02HK3KZ Insertion of Defibrillator Lead into Right Ventricle, Percutaneous Approach (ICD-10-PCS; 2017-07-01)
PROC: 0JH608Z Insertion of Defibrillator Generator into Chest Subcutaneous Tissue and Fascia, Open Approach (ICD-10-PCS; principal; 2017-07-01 07:30)
DX: I25.5 Ischemic cardiomyopathy (principal); I10 Essential (primary) hypertension; I25.10 Atherosclerotic heart disease of native coronary artery without angina pectoris; E78.00 Pure hypercholesterolemia, unspecified; N40.0 Benign prostatic hyperplasia without lower urinary tract symptoms
CPT/HCPCS: 33249; 71010; 80048; 83735; 85025; 85610; 85730; 93005; 99217; C1722; C1896; C1898; G0378; J0690; J2250; J2270; J2370; J3010

== ENCOUNTER 2018-12-18 07:11 | Day surgery (SDC) | payer BC ==
[~2018-12-18] VITALS: Ht 170.2 cm; Wt 83.9 kg
[2018-12-18] VITALS (43 sets, daily range): BP systolic 84–106; BP diastolic 52–67; PULSE 50–72; RESP 10–28; Ht 170.2 cm; Wt 83.9 kg
[~2018-12-18 07:11] MED LIST changes: +ASPI-831 PO; -ASPI81TA3 PO; +ATOR-2 PO; -ATOR80TA75 PO; +CEPH-443 PO; +DIAZEPAM 5 MG TAB PO SCH; +DIPHENHYDRAMINE 50 MG CAP PO SCH; +FAMOTIDINE 20 MG TAB PO SCH; +HYDR-2086 PO; +LANS15CA5 PO; -LISI-313 PO; +LISI10TA2 PO; +METO-335 PO; -METO-448 PO; -PANT40TA4 PO; +RANO500T2 PO; +SOD CHLORIDE 0.45% 1,000 ML IV SCH; +TAMS0.4C2 PO
[2018-12-18] MEDS ORDERED: ASPI-817 ORAL (08:19)
[2018-12-18] MEDS ORDERED: LISI-313 ORAL (08:19)
[2018-12-18] MEDS ORDERED: IODIXANOL LOCM 100 ML BTL ONE (09:24)
[2018-12-18] MEDS ORDERED: HEPARIN 1000 UNITS/ML 10 ML INJ ONE (09:24)
[2018-12-18] MEDS ORDERED: MIDAZOLAM 1 MG/ML 2 ML INJ ONE (09:24)
[2018-12-18] MEDS ORDERED: NITROGLYCERIN (IC) 100 MCG/ML INJ ONE (09:25)
[2018-12-18] MEDS ORDERED: FENTAnyl 50 MCG/ML VIAL ONE (09:25)
[2018-12-18] MEDS ORDERED: VERAPAMIL 5 MG INJ ONE (09:25)
[2018-12-18] MEDS ORDERED: SOD CHLORIDE 0.9% 1,000 ML IV SCH (10:19)
--- NOTE | 2018-12-18 10:19 | SIPON ---
Date/Time of Note Date/Time of Note DATE: 12/18/18 TIME: 10:18 Operative Report Preoperative Diagnosis 1.chest paion 2.abnl mpi Postoperative Diagnosis 1.mild non-obstructive cad Operation/Procedure Performed 1.[facility] Surgeon see signature line unit assistant 1.[place] Anesthesia: moderate sedation Estimated blood loss: minimal Transfusion Required none Specimen none Grafts/Implants none Complications none NIMCO PERRY Dec 18, 2018 10:19
[2018-12-18] MEDS ORDERED: AL HYDROX/MG HYDROX/SIMETH 30 ML CUP PO PRN (10:30)
[2018-12-18] MEDS ORDERED: morphine 2 MG INJ IV PRN (10:30)
[2018-12-18] MEDS ORDERED: ONDANSETRON 4 MG INJ IV PRN (10:30)
[2018-12-18] MEDS ORDERED: ACETAMINOPHEN 325 MG TAB PO PRN (10:30)
--- NOTE | 2018-12-18 16:49 | CARRPT ---
DATE OF PROCEDURE: 12/18/2018 TYPE OF PROCEDURE: 1. Left heart catheterization. 2. Coronary angiography. 3. Left ventriculogram. 4. Moderate conscious sedation. ATTENDING PHYSICIAN: Nimco Christiansen MD REFERRING PHYSICIAN: Self-referred. INDICATIONS: Chest pain refractory to medical therapy, positive stress test findings, decreased EF. TYPE OF ANESTHESIA: Conscious and local. BRIEF HISTORY: Mr. 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 The patient subsequently underwent a cardiac stress test revealing positive in ferior ischemia. Given these findings, the patient referred for and presents today in order to under go left heart catheterization to assess for possibility of significant obstructive coronary artery di sease lending to symptoms of chest pain and subsequent positive stress test findings. DESCRIPTION OF PROCEDURE: After informed consent was obtained, the patient was brought to the [facility] cardiac cardiac cath lab technologist where his right radial area was prepped and draped in the usu al sterile fashion. A 2% lidocaine was infiltrated into the right radial area in order to achieve ad equate local anesthesia. Using the modified Seldinger technique, the radial artery was cannulated an d a 6-Israeli arterial sheath was placed. A 6-Israeli JL3.5 catheter was used to cannulate the left ma in coronary ostium. With contrast injection, multiple views of the left coronary arterial system wer e obtained. JL3.5 was removed over a guidewire and JR4 was used to cannulate the right coronary tahir rial ostium. With contrast injection, multiple views of the right coronary arterial system were obta ined. JR4 was removed over the guidewire and a 6-Israeli pigtail was passed down the ascending aorta, placed in LV. LVEDP was measured. Then, 20 mL of contrast was injected and then it was pulled back across the aortic valve and subsequently removed. This completed the procedure. The patient's gill th system was removed. TR band was applied. There were no noted complications. FINDINGS: Coronary angiography: Right coronary artery proximally is a 2.5 mm vessel and in its mid portion has a widely patent stent with no significant in-stent restenosis. The right coronary artery gives off a very small PDA sub-2 mm vessel with no significant focal stenosis and a posterolateral b ranch sub-1.5 mm vessel with no significant focal stenosis. The left main proximally is a 4 mm vesse l. No significant focal stenosis. In the mid left main, there is a 20% to 30% stenosis. The circum flex proximally is a 3 mm vessel and in its mid portion is a widely patent stent with no significant in-stent restenosis. There is a mid branching obtuse marginal 2 mm with no significant focal stenosi s, branching into 2 daughter branches with the superior daughter branch possibly having a tubular cierra nosis of up to 60% to 70% with a sub 1.5 mm vessel. The circ continuation AV groove is free of signi ficant focal stenosis. There is a left-sided PDA 2 mm with no significant focal stenosis and a left- sided posterolateral branch sub-2 mm vessel with diffuse disease of 30% to 40%. There is a mid branc eula obtuse marginal 2 mm vessel with no significant focal stenosis and a very proximal branching obt use marginal 2 mm vessel with no significant focal stenosis. The LAD proximally is a 3 mm vessel and has a widely patent proximal stent with no significant in-stent restenosis. In the mid portion of t he LAD, there is a 30% to 40% stenosis. The remainder of the LAD is free from focal stenosis around the apex. There is a proximal branching diagonal 2.5 mm with 2 daughter branches 2 mm each with no s ignificant focal stenosis. Left ventriculogram: There is a left ventricular ejection fraction of approximately 35%; left ventri cular end-diastolic pressure of 13 pre-LV gram, 14 post-LV gram; no significant aortic stenosis by gr adient; 1+ mitral regurgitation. TOTAL FLUOROSCOPY TIME: 4.2 minutes TOTAL CONTRAST: 60 mL IMPRESSION: 1. Mild nonobstructive coronary artery disease. 2. Widely patent proximal left anterior descending , mid circumflex and mid right coronary artery st ents. 3. Depressed left ventricular systolic function moderately. 4. Normal left heart filling pressures. 5. A 1+ mitral regurgitation. 6. No significant aortic stenosis by gradient. RECOMMENDATIONS: In light of procedural findings at this time, we would: 1. Maximize medical management. 2. Aggressive risk factor reduction. 3. The patient will be readmitted to same-day surgery for post-cath observation and continued manage ment of symptoms with probable discharge the following day. Dictated By: NIMCO RODRÍGUEZ/MELANIE Conf#: [id number] DID#: [id number]
== END 2018-12-18 14:56 | disposition home or self-care (01) ==
LOC: SDS 07:11 → CCL 07:11
PROVIDERS: ATTEND Internal Medicine
DX: I25.10 Atherosclerotic heart disease of native coronary artery without angina pectoris (principal); I10 Essential (primary) hypertension; E78.5 Hyperlipidemia, unspecified; I42.9 Cardiomyopathy, unspecified
CPT/HCPCS: 71045; 80048; 80061; 85025; 85610; 85730; 93458; C1887; J1644; J2250; J3010; Q9967; Z7610